=== PATIENT | female | born 1980 | race Caucasian/White ===

== ENCOUNTER → 2016-10-30 | Outpatient (CLI) | payer OTHER | END | disposition home or self-care (01) | LOC: RADECHMAIN 14:35 | PROVIDERS: ATTEND Nurse Practitioner Family | DX: I49.1 Atrial premature depolarization (principal) | CPT/HCPCS: 93225; 93226 ==

== ENCOUNTER → 2016-12-21 | Outpatient (CLI) | payer OTHER ==
--- NOTE | 2016-12-21 16:05 | MR ---
MR brain without contrast HISTORY: Paresthesias skin Multiplanar multisequence imaging through the brain. No comparisons Corpus callosum, pituitary, cervical medullary junction, cerebellopontine angles are within normal li mits, there is a convex margin of the pituitary gland. There are normal vascular flow voids. Brain si gnal is normal. There is no hemorrhage or hydrocephalus. No restricted diffusion to suggest subacute ischemia. Some mild inflammatory change present in the ethmoid air cells. Orbits are symmetric. IMPRESSION: Mild sinus disease. Convex margin of the pituitary may be a normal variant, consider foll ow-up to assess for stability or dedicated pituitary MRI as indicated with and without contrast
== END | disposition home or self-care (01) ==
LOC: RADMRIMAIN 14:26
PROVIDERS: ATTEND Psychiatry & Neurology Neurology
DX: R20.2 Paresthesia of skin (principal)
CPT/HCPCS: 70551

== ENCOUNTER → 2016-12-29 | Outpatient (CLI) | payer OTHER ==
--- NOTE | 2017-01-01 13:15 | MM ---
Reason for exam: screening (asymptomatic). Last mammogram was performed 8 years and 11 months ago. History: Family history of breast cancer in grandmother at age 62 and breast cancer in cousin. Physical Findings: A clinical breast exam by your physician is recommended on an annual basis and results should be correlated with mammographic findings. MG Screening Mammo w CAD Bilateral CC, MLO, and XCCL view(s) were taken. Prior study comparison: January 23, 2008, bilateral diagnostic digital mammog. The breast tissue is extremely dense which could obscure a lesion on mammography. Finding: There are new grouped/clustered calcifications in the right breast. New finding since January 23, 2008. ASSESSMENT: Incomplete: need additional imaging evaluation, BI-RAD 0 RECOMMENDATION: Special view mammogram of the right breast. [facility] will attempt to contact patient to return for supplemental views.
== END | disposition home or self-care (01) ==
LOC: RADMAMWWP 15:22
PROVIDERS: ATTEND Family Medicine
DX: Z12.31 Encounter for screening mammogram for malignant neoplasm of breast (principal); R92.8 Other abnormal and inconclusive findings on diagnostic imaging of breast

== ENCOUNTER → 2017-01-05 | Outpatient (CLI) | payer OTHER ==
--- NOTE | 2017-01-05 08:25 | MR ---
EXAMINATION TYPE: MR pituitary wo/w con DATE OF EXAM: 01/05/2017 6:55 AM COMPARISON: MRI brain 12/21/2016 HISTORY: paresthesia of skin, abn mri CONTRAST: Standard multiplanar, multisequence MRI departmental protocol utilizing 8 mL intravenous MultiHance g adolinium contrast. FINDINGS: Pituitary has a normal morphology. The convexity identified on prior study is not as appare nt on the current exam. Pituitary stalk may be subtly left of midline though the pituitary appears no rmal. Following contrast administration suspicious enhancement pattern within the pituitary is not ev ident. There are focal hyperintensities within the posterior right pituitary which can be related to the normal pituitary. Correlation with laboratory findings can be performed. If there are abnormal laboratory results, vicente toring would be recommended. Optic chiasm is unremarkable. Normal vascular flow voids are within the carotid siphons. Sphenoid sin us is unremarkable. Temporal lobes appear unremarkable. IMPRESSION: 1. Pituitary appears within normal limits for female of this age. Correlate with laboratory findings.
== END | disposition home or self-care (01) ==
LOC: RADMRIMAIN 06:10
PROVIDERS: ATTEND Psychiatry & Neurology Neurology
DX: R93.0 Abnormal findings on diagnostic imaging of skull and head, not elsewhere classified (principal); R20.2 Paresthesia of skin
CPT/HCPCS: 70553; A9577

== ENCOUNTER 2017-01-08 17:45 | Emergency (ER) | payer OTHER ==
[2017-01-08 18:23] VITALS: RESP 18
--- NOTE | 2017-01-08 19:42 | ED ---
Head Injury HPI - General Chief complaint: Head Injury Stated complaint: HEAD INJURY FROM FALL Time Seen by Provider: 01/08/17 19:23 Source: patient, RN notes reviewed Mode of arrival: wheelchair - History of Present Illness Initial comments: 36-year-old female presents to the emergency department with a chief complaint of fall. Patient states she was reaching to grab something in her chair last night she fell over and hit her head on a brick. Patient states that she went to a neurologist today and she sent her to the ER to get imaging. The neurologist was concerned about the brain as well as a possible whiplash type injury to the left side of the neck. Patient states she has had a headache and felt off since she had her head. She doesn't left-sided the neck as well. Patient denies any other injuries from the incident. She does not believe that she passed out with the fall. Patient does have a history of balance issues and is currently with a neurologist for this and is not here for this evaluation she states she just needs her head evaluated since the fall. Patient denies any recent fever, chills, shortness of breath, chest pain, back pain, abdominal pain, nausea vomiting, numbness or tingling, dysuria or hematuria, constipation or diarrhea, or visual changes, or any other current symptoms. - Related Data Home Medications Medication Instructions Recorded Confirmed Loratadine [Claritin] 10 mg PO DAILY 07/04/16 01/08/17 Ranitidine HCl 150 mg PO AC-SUPPER 07/04/16 01/08/17 Albuterol Inhaler [Ventolin Hfa 2 puff INHALATION RT-Q4H PRN 01/08/17 01/08/17 Inhaler] Dicyclomine [Bentyl] 10 mg PO TID PRN 01/08/17 01/08/17 Omeprazole 40 mg PO HS 01/08/17 01/08/17 clonazePAM [KlonoPIN] 1 mg PO DAILY PRN 01/08/17 01/08/17 traZODone HCL 50 mg PO HS PRN 01/08/17 01/08/17 Previous Rx's Medication Instructions Recorded Orphenadrine [Norflex] 100 mg PO Q12H #10 tablet.er 01/08/17 Allergies/Adverse reactions: Allergies Allergy/AdvReac Type Severity Reaction Status Date / Time hydromorphone HCl Allergy Severe Drop in BP Verified 01/08/17 20:04 [From Dilaudid] Sulfa (Sulfonamide Allergy Swelling,rash Verified 01/08/17 20:04 Antibiotics) and joint pain Review of Systems ROS Statement: Those systems with pertinent positive or pertinent negative responses have been documented in the HPI. ROS Other: All systems not noted in ROS Statement are negative. Past Medical History Past Medical History: Asthma, COPD, Fibromyalgia, Pneumonia Additional Past Medical History / Comment(s): migraines, "Low BP", hiatal hernia , hx H Pylori-had ulcers, anemia, lupus, hx colitis and pancreatitis-2012 History of Any Multi-Drug Resistant Organisms: None Reported Past Surgical History: Adenoidectomy, Cholecystectomy, Tonsillectomy, Tubal Ligation Additional Past Surgical History / Comment(s): pmx: lupas, colitis, pancreatitis Past Anesthesia/Blood Transfusion Reactions: Motion Sickness, Postoperative Nausea & Vomiting (PONV) Past Psychological History: No Psychological Hx Reported, Anxiety, Depression Smoking Status: Current every day smoker Past Alcohol Use History: None Reported Additional Past Alcohol Use History / Comment(s): has smoked for 20 yrs, 1/2 PPD Past Drug Use History: Marijuana - Past Family History Father Family Medical History: Cancer General Exam General appearance: alert, in no apparent distress Head exam: Present: atraumatic, normocephalic, normal inspection Eye exam: Present: normal appearance, PERRL, EOMI. Absent: scleral icterus, conjunctival injection, periorbital swelling ENT exam: Present: normal exam, mucous membranes moist Neck exam: Present: normal inspection, tenderness, full ROM, other (Pain to palpation on left trapezius). Absent: meningismus (Left lateral aspect), lymphadenopathy, thyromegaly Respiratory exam: Present: normal lung sounds bilaterally. Absent: respiratory distress, wheezes, rales, rhonchi, stridor Cardiovascular Exam: Present: regular rate, normal rhythm, normal heart sounds. Absent: systolic murmur, diastolic murmur, rubs, gallop, clicks Neurological exam: Present: alert, oriented X3, CN II-XII intact. Absent: motor sensory deficit Psychiatric exam: Present: normal affect, normal mood Skin exam: Present: warm, dry, intact, normal color. Absent: rash Course Vital Signs 01/08/17 18:17 Temperature 98.1 F Pulse Rate 68 Respiratory 18 Rate Blood Pressure 113/65 O2 Sat by Pulse 98 Oximetry Medical Decision Making - Medical Decision Making 36-year-old female presents to the emergency department with a chief complaint of fall. At this time patient was CT of head and neck. Patient appears to have a cervical strain as well as minor head injury. This time we discussed Motrin Tylenol for pain control. We did give the patient. We discussed follow- up with neurologist and return parameters. Patient stated that she understood and all her questions have been answered. She will be discharged. - Radiology Data Radiology results: report reviewed, image reviewed Disposition Clinical Impression: Cervical strain, acute, Concussion Disposition: HOME SELF-CARE Condition: Stable Instructions: Concussion (ED), Cervical Strain (ED) Additional Instructions: Please use medication as discussed. Please follow up with family doctor if symptoms have not improved over the next two days. Please return to the emergency room if your symptoms increase or worsen or for any other concerns. Prescriptions: Orphenadrine [Norflex] 100 mg PO Q12H #10 tablet.er Referrals: Aly Simmons MD [Primary Care Provider] - 1-2 days Time of Disposition: 20:21
--- NOTE | 2017-01-08 20:21 | CT ---
EXAMINATION TYPE: CT brain carmenine wo con DATE OF EXAM: 01/08/2017 7:49 PM COMPARISON: NONE HISTORY: Pt states of head and neck pain after fall injury. CT DLP: 1285.1 mGycm. Automated Exposure Control for Dose Reduction was Utilized. TECHNIQUE: CT scan of the head and cervical spine are performed without contrast. FINDINGS: There is no acute intracranial hemorrhage, mass effect, or midline shift identified. The ventricles and sulci are within normal limits in size. Koch-white matter differentiation is maintain ed. The globes are intact and the visualized sinuses are clear. The calvarium is intact. Cervical spine is visualized in its entirety from C1 through upper thoracic levels and demonstrates r eversal of normal cervical curvature without evidence of acute fracture or dislocation. Prevertebral soft tissue appears within normal limits. The C1-C2 articulation is within normal limits on the cor onal images. Vertebral body heights are maintained. There is moderate to severe disc space narrowing with mild to moderate spurring at C5-C6 level. Posterior spur disc complex at this level is present. Posterior disc herniation C6-C7 level is seen on sagittal images. Mild apical scarring in both lung apices is seen. IMPRESSION: 1. There is no acute fracture or dislocation evident in the cervical spine. 2. No acute intracranial hemorrhage, mass effect, or midline shift is seen.
[2017-01-08 20:45] VITALS: BP 100/59; PULSE 61; TEMP 97.8
== END 2017-01-08 20:45 | disposition home or self-care (01) ==
LOC: EC 17:45
DX: S06.0X0A Concussion without loss of consciousness, initial encounter (principal); S16.1XXA Strain of muscle, fascia and tendon at neck level, initial encounter; F32.9 Major depressive disorder, single episode, unspecified; F41.9 Anxiety disorder, unspecified; F17.200 Nicotine dependence, unspecified, uncomplicated; Z79.899 Other long term (current) drug therapy; Z88.2 Allergy status to sulfonamides; Z88.5 Allergy status to narcotic agent; W18.00XA Striking against unspecified object with subsequent fall, initial encounter; Y92.009 Unspecified place in unspecified non-institutional (private) residence as the place of occurrence of the external cause
CPT/HCPCS: 70450; 72125; 99283

== ENCOUNTER 2017-01-15 09:48 | Day surgery (SDC) | payer OTHER ==
[2017-01-11 18:03] VITALS: BMI 15.7
[~2017-01-15 09:48] MED LIST: DEXAMETHASONE SOD PHOSPHATE 10 MG/ML 1 ML VIAL IV ONE; LACTATED RINGERS 1,000 ML IV SCH; LIDOCAINE 1% 20 ML VIAL (10MG/ML) FOR IV START INTRADERMA PRN; ONDANSETRON 4 MG/2 ML VIAL IVP ONE; Pre Op ABX Message 1 EACH MISC MISCELLANE ONE; SCOPOLAMINE 1.5MG/72HR PATCH TRANSDERM ONE; fentaNYL (PF) 50 MCG/ML 2 ML AMP IV PRN
[2017-01-15] MEDS ORDERED: ALPRAZolam 0.25 MG TAB PO STA (10:23)
[2017-01-15] MEDS ORDERED: LIDOCAINE 1% INJ 10MG/ML (10 ML MDV) SQ ONE (11:00)
[2017-01-15] MEDS ORDERED: SODIUM BICARB 4% 5 ML VIAL (0.48 MEQ/ML) MISCELLANE ONE (11:00)
[2017-01-15 11:12] VITALS: TEMP 98
[2017-01-15 11:55] VITALS: RESP 16
[2017-01-15] MEDS ORDERED: BUPIVACAIN-EPI 0.25%-1:200,000 30 ML VIAL SQ ONE ×3 (11:58→12:47)
[2017-01-15] MEDS ORDERED: MIDAZOLAM 2 MG/2 ML VIAL ONE (12:15)
[2017-01-15] MEDS ORDERED: PROPOFOL 10 MG/ML 20 ML VIAL IV ONE (12:15)
[2017-01-15] MEDS ORDERED: fentaNYL (PF) 50 MCG/ML 2 ML AMP ONE (12:15)
--- NOTE | 2017-01-15 13:00 | P.OP ---
Date of Procedure: 01/15/17 Preoperative Diagnosis: Abnormal mammogram, microcalcifications right breast Postoperative Diagnosis: Same Procedure(s) Performed: Needle localized breast biopsy Anesthesia: MAC Surgeon: Tashia Ramirez Estimated Blood Loss (ml): 2 Pathology: other (Breast tissue) Condition: stable Disposition: PACU Indications for Procedure: The patient had a mammogram done showing some microcalcifications for which biopsy was recommended. Due to the size of her breasts she was not amenable to stereotactic biopsy so excisional needle localized biopsy was recommended Description of Procedure: Patient's taken the operative suite where she is prepped and draped in the usual sterile manner under IV sedation. Local anesthetic was instilled in the skin and breast tissue. A circumareolar incision was made dissection was made down along the guidewire. The tissue around the guidewire was sharply excised. The specimen was tagged and sent for mammography. Mammography did show the area of concern to be excised. There is no bleeding noted. The skin was closed with 4-0 Vicryl subcuticular manner. Steri-Strips and dressings were applied. She tolerated the procedure without difficulty and was taken recovery room in satisfactory condition. According to or personnel all counts were correct. Plan - Discharge Summary New Discharge Prescriptions: traMADol HCL [Ultram] 50 mg PO Q4HR PRN #20 tab PRN Reason: Pain Discharge Medication List Loratadine [Claritin] 10 mg PO DAILY 07/04/16 [History] Ranitidine HCl 150 mg PO BID 07/04/16 [History] Albuterol Inhaler [Ventolin Hfa Inhaler] 2 puff INHALATION RT-Q4H PRN 01/08/17 [ History] Dicyclomine [Bentyl] 10 mg PO TID PRN 01/08/17 [History] Omeprazole 40 mg PO HS 01/08/17 [History] Orphenadrine [Norflex] 100 mg PO Q12H #10 tablet.er 01/08/17 [Rx] clonazePAM [KlonoPIN] 1 mg PO TID PRN 01/08/17 [History] traZODone HCL 50 mg PO HS PRN 01/08/17 [History] traMADol HCL [Ultram] 50 mg PO Q4HR PRN #20 tab 01/15/17 [Rx] Follow up Appointment(s)/Referral(s): Tashia Ramirez DO [Doctor of Osteopathic Medicine] - 1 Week Activity/Diet/Wound Care/Special Instructions: Ice to the incision 24 hours. The dressing may be removed on Sunday then you may shower. Remove the little tapes in 1 week. He can take Motrin or Tylenol for pain. Expect some bruising. Notify us of questions or concerns. Discharge Disposition: HOME SELF-CARE
[2017-01-15] MEDS ORDERED: traMADol 50 MG TAB PO ONE (13:17)
[2017-01-15 13:37] VITALS: BP 91/60; PULSE 58
--- NOTE | 2017-01-15 16:42 | MM ---
EXAMINATION TYPE: MG pre op needle loc RT, MG surgical specimen RT DATE OF EXAM: 01/15/2017 12:24 PM COMPARISON: 01/04/2017 and 12/29/2016 CLINICAL HISTORY: 36-year-old female with right breast microcalcifications not amenable to stereotactic core needle biopsy, referred for excision. TECHNIQUE: Needle localization with wire placement and surgical excision of area of concern in the 10:00 anterior right breast. FINDINGS: The procedure of needle localization with wire placement and than surgical excision was explained to the patient. Benefits, alternatives, and risks were discussed. An informed consent was then obtained. The shortest pathway for procedure was chosen. Shortest pathway was a lateral approach. The overlying skin was prepped and draped in usual sterile fashion. Lidocaine buffered with bicarbonate was used as anesthetic into the skin and subcutaneous tissue up to the level of area of concern. A 5 cm Kopans needle was used. It was placed via a lateral approach under mammographic guidance. Subsequent 90 degrees mammogram show the needle to be in satisfactory position relative to the targeted area. At this point, wire was placed and the needle was withdrawn. Due to patient's breast size, there was inadvertent further advancement of the wire. The calcifications still lie posterior to the thick segment. The calcifications are located 1.3 cm deep to the lateral skin margin. The wire tip is located 3.4 cm deep to the skin margin. The wire was fixed to patient's skin. Images were marked for surgeon. Dr. Ramirez was also contacted by phone to be made aware of these findings. The patient tolerated the procedure well without any immediate complication. The patient was kept in the radiology department for short stay after the procedure and then taken to surgery for surgical excision. Targeted calcifications and wire are identified in specimen mammogram. The patient was kept in hospital for short stay after the procedure and then discharged home in stable condition. IMPRESSION: Successful, uncomplicated needle localization with wire placement and surgical excision of suspicious group of calcifications in the right breast, full pathology results to follow. Pathology Results: Benign BREAST, RIGHT, IMAGE GUIDED LOCALIZATION: FIBROCYSTIC CHANGE (DENSE STROMAL FIBROSIS, CYST FORMATION, APOCRINE METAPLASIA, ADENOSIS, FIBROADENOMATOID HYPERPLASIA, AND DUCT HYPERPLASIA). PENDING X-RAY OF SPECIMEN BLOCKS AND POSSIBLE DEEPER SECTIONS. ADDENDUM REPORT BREAST, RIGHT, IMAGE GUIDED LOCALIZATION: FIBROCYSTIC CHANGE (DENSE STROMAL FIBROSIS, CYST FORMATION, APOCRINE METAPLASIA, ADENOSIS, FIBROADENOMATOID HYPERPLASIA AND DUCT HYPERPLASIA). CALCIFICATION IDENTIFIED. Recommendation Follow up mammogram of the right breast in 6 months. SALOMOND
== END 2017-01-15 13:53 | disposition home or self-care (01) ==
LOC: OR 09:48
PROVIDERS: ATTEND Surgery
DX: N60.81 Other benign mammary dysplasias of right breast (principal); R92.0 Mammographic microcalcification found on diagnostic imaging of breast; N60.31 Fibrosclerosis of right breast; N60.11 Diffuse cystic mastopathy of right breast; N60.21 Fibroadenosis of right breast; N62 Hypertrophy of breast; J44.9 Chronic obstructive pulmonary disease, unspecified; F17.200 Nicotine dependence, unspecified, uncomplicated; J45.909 Unspecified asthma, uncomplicated; F32.9 Major depressive disorder, single episode, unspecified; M79.7 Fibromyalgia; M32.9 Systemic lupus erythematosus, unspecified; K21.9 Gastro-esophageal reflux disease without esophagitis; Z79.1 Long term (current) use of non-steroidal anti-inflammatories (NSAID); Z79.899 Other long term (current) drug therapy; Z80.3 Family history of malignant neoplasm of breast; Z88.5 Allergy status to narcotic agent; Z88.2 Allergy status to sulfonamides
CPT/HCPCS: 81025; 88307; 76098; 19281; 19101; J2250; J1100; J2405; J3010; J2001; J2704

== ENCOUNTER → 2017-07-19 | Outpatient (CLI) | payer OTHER ==
--- NOTE | 2017-07-19 10:09 | MM ---
Reason for exam: follow-up at short interval from prior study. Last mammogram was performed 6 months ago. History: Family history of breast cancer in grandmother at age 62 and breast cancer in cousin. Benign MG pre op needle loc RT of the right breast, January 15, 2017. Physical Findings: Nurse did not find any significant physical abnormalities on exam. MG Diagnostic Mammo w CAD [place] Bilateral CC and MLO view(s) were taken. Prior study comparison: December 29, 2016, bilateral MG screening mammo w CAD. The breast tissue is extremely dense which could obscure a lesion on mammography. No significant new findings when compared with previous films. These results were verbally communicated with the patient and result sheet given to the patient on 07/19/17. ASSESSMENT: Benign, BI-RAD 2 RECOMMENDATION: Routine screening mammogram of both breasts in 1 year.
--- NOTE | 2017-07-19 12:43 | ECHOS ---
STRESS ECHOCARDIOGRAM DATE OF SERVICE: 07/19/2017 INDICATIONS: Chest pain. MEDICATIONS:: Loratadine, dicyclomine, clonazepam, ranitidine, omeprazole, Trazodone, gabapentin. BASELINE HEART RATE: 65 BASELINE BLOOD PRESSURE: 86/46 MAXIMUM HEART RATE: 142 MAXIMUM BLOOD PRESSURE: 128/84 85% MPHR: 156 100% MPHR: 183 METS: 12.1 MAXIMUM STAGE REACHED: 4 TOTAL EXERCISE TIME: 11:00 CLINICAL INFORMATION: Pretesting physical examination showed heart rate of 65, pressure is 86/46 mmHg. Baseline EKG showed sinus mechanism. The patient exercised on the treadmill according to Bhaskar protocol for a total of 11 minutes and achieved 12.1 METS. Max heart rate was 142, which is about 77% of maximum predicted heart rate. Maximum blood pressure was 128/84 mmHg. Clinically, the patient did not have any symptoms of chest discomfort during the testing or in the recovery time. The EKG did not show any significant ST or T-wave abnormalities consistent with ischemia. ECHOCARDIOGRAM IMAGES: On echocardiogram images from parasternal long axis, parasternal short axis view, apical 4-chamber view, apical 2-chamber view were obtained as the baseline images, at the heart rate as well as on recovery. The echocardiogram images did not show any obvious wall motion abnormalities consistent with ischemia. CONCLUSION: 1. Excellent exercise capacity. 2. Nondiagnostic stress testing due to the patient not achieving 85% of maximum predicted heart rate. 3. If the patient's symptoms are concerning, different modality of stress test is recommended. MMTAMICA / DALTONN: [id number] /
--- NOTE | 2017-07-23 09:15 | ECHOS ---
STRESS ECHOCARDIOGRAM DATE OF SERVICE: 07/20/2017 INDICATIONS: Chest pain. MEDICATIONS:: Loratadine, Dicyclomine, clonazepam, ranitidine, omeprazole, trazodone, Calmoseptine, BASELINE HEART RATE: 65 BASELINE BLOOD PRESSURE: 86/46 MAXIMUM HEART RATE: 142 MAXIMUM BLOOD PRESSURE: 128/84 85% MPHR: 156 100% MPHR: 183 METS: 12.1 MAXIMUM STAGE REACHED: 4 TOTAL EXERCISE TIME: 11:00 STRESS DATA: Physical examination showed heart rate of 65, blood pressure 84/46 mmHg. Baseline EKG showed sinus mechanism. MMODL / IJN: [id number] /
== END | disposition home or self-care (01) ==
LOC: RADMAMWWP 09:03
PROVIDERS: ATTEND Family Medicine
DX: R92.8 Other abnormal and inconclusive findings on diagnostic imaging of breast (principal); R55 Syncope and collapse; Z88.2 Allergy status to sulfonamides; Z88.5 Allergy status to narcotic agent
CPT/HCPCS: 93017; 93225; 93226; C8928; G0204; Q9957; 93350

== ENCOUNTER → 2018-07-22 | Outpatient (CLI) | payer OTHER ==
--- NOTE | 2018-07-22 13:52 | MM ---
Reason for exam: additional evaluation requested from prior study. Last mammogram was performed 1 year ago. History: Family history of breast cancer in grandmother at age 62 and breast cancer in cousin. Benign MG pre op needle loc RT of the right breast, January 15, 2017. Took hormonal contraceptives beginning at age 19. Physical Findings: Nurse did not find any significant physical abnormalities on exam. MG Diagnostic Mammo w CAD [place] Bilateral CC and MLO view(s) were taken. Prior study comparison: July 19, 2017, bilateral MG diagnostic mammo w CAD [place]. January 04, 2017, right breast MG work up mamm w CAD RT. The breast tissue is heterogeneously dense. This may lower the sensitivity of mammography. There is chronic nodularity bilaterally. There is no dominant lesion. No significant new findings when compared with previous films. These results were verbally communicated with the patient and result sheet given to the patient on 07/22/18. ASSESSMENT: Benign, BI-RAD 2 RECOMMENDATION: Routine screening mammogram of both breasts in 1 year.
== END | disposition home or self-care (01) ==
LOC: RADMAMWWP 13:05
PROVIDERS: ATTEND Family Medicine
DX: R92.8 Other abnormal and inconclusive findings on diagnostic imaging of breast (principal)
CPT/HCPCS: 77066